=== PATIENT | female | born 1995 | race African-American/Black ===

== ENCOUNTER 2017-03-04 10:21 | Emergency (ER) | payer OTHER ==
[~2017-03-04] VITALS: Ht 149.9 cm; Wt 45.0 kg
[2017-03-04] MEDS ORDERED: KETOROLAC 60MG/2ML VIAL IM ONE (12:30)
[2017-03-04 14:52] VITALS: BP 127/80
== END 2017-03-04 14:54 | disposition home or self-care (01) ==
LOC: ER 12:43
DX: S80.01XA Contusion of right knee, initial encounter (principal); W01.0XXA Fall on same level from slipping, tripping and stumbling without subsequent striking against object, initial encounter; Y93.89 Activity, other specified; Y92.219 Unspecified school as the place of occurrence of the external cause; J98.4 Other disorders of lung
CPT/HCPCS: 73562; 81025; 96372; 99284; J1885; L1830

== ENCOUNTER 2022-05-13 16:10 | Emergency (ER) | payer OTHER ==
[~2022-05-13] VITALS: Ht 165.1 cm; Wt 75.0 kg
[2022-05-13] MEDS ORDERED: ACET-2708 MT (17:53)
[2022-05-13] MEDS ORDERED: AMOX1TAB16 MT (17:53)
[2022-05-13] MEDS ORDERED: AMOXICILLIN/POTASSIUM CLAVULANATE 875/125MG TAB PO ONE (18:00)
[2022-05-13] MEDS ORDERED: ACETAMINOPHEN 325MG TABLET PO ONE (18:00)
[2022-05-13 18:35] VITALS: BP 125/97
== END 2022-05-13 18:38 | disposition home or self-care (01) ==
LOC: ER 16:22
DX: S60.561A Insect bite (nonvenomous) of right hand, initial encounter (principal); T78.49XA Other allergy, initial encounter; W57.XXXA Bitten or stung by nonvenomous insect and other nonvenomous arthropods, initial encounter; Y93.89 Activity, other specified; Y92.018 Other place in single-family (private) house as the place of occurrence of the external cause
CPT/HCPCS: 81025; 99283

== ENCOUNTER 2024-05-05 12:46 | Emergency (ER) | payer MEDICAID, OTHER ==
[~2024-05-05] VITALS: Ht 154.9 cm; Wt 50.3 kg
[~2024-05-05 12:46] MED LIST: ACET-2708 MT; AMOX1TAB16 MT
[2024-05-05 12:56] VITALS: O2SAT 100
[2024-05-05] MEDS ORDERED: DICL500C MT (13:59)
[2024-05-05] MEDS ORDERED: NAPR-681 MT (13:59)
[2024-05-05 14:09] VITALS: BP 140/77; PULSE 74; RESP 16; TEMP 36.89184; O2SAT 100
== END 2024-05-05 14:30 | disposition home or self-care (01) ==
LOC: ER 14:18
DX: N61.1 Abscess of the breast and nipple (principal); Z98.890 Other specified postprocedural states
CPT/HCPCS: 99283

== ENCOUNTER 2024-11-28 13:12 | Emergency (ER) | payer MEDICAID ==
[~2024-11-28] VITALS: Ht 154.9 cm; Wt 51.7 kg
[~2024-11-28 13:12] MED LIST changes: +DICL500C MT; +NAPR-681 MT
[2024-11-28 13:14] VITALS: O2SAT 100
[2024-11-28 13:16] VITALS: BP 137/74; PULSE 68; RESP 16; TEMP 37; O2SAT 100
[2024-11-28] MEDS ORDERED: SULF1TAB48 MT (15:53)
== END 2024-11-28 16:12 | disposition home or self-care (01) ==
LOC: ER 13:12
DX: N61.0 Mastitis without abscess (principal); I51.9 Heart disease, unspecified; Z93.0 Tracheostomy status; Z79.899 Other long term (current) drug therapy; Z98.890 Other specified postprocedural states
CPT/HCPCS: 99283